=== PATIENT | male | born 1985 | race Two or more races ===

== ENCOUNTER 2021-12-30 07:43 | Outpatient (REF) | payer OTHER, SELFPAY ==
--- NOTE | ~2021-12-30 | US_ITS ---
EXAMINATION: US ABDOMEN COMPLETE CLINICAL INFORMATION: Epigastric pain, abnormal weight loss. COMPARISON: None TECHNIQUE: Real-time imaging of the abdominal viscera. FINDINGS: PANCREAS: Normal. ABDOMINAL AORTA: The proximal, mid, and distal segments are normal in caliber. INFERIOR VENA CAVA: Visualized portions are normal. LIVER: Normal. The liver is normal in size. The liver contour is normal. Parenchymal echogenicity is normal. No focal hepatic lesion. There is no intrahepatic biliary duct dilatation seen. GALLBLADDER: Normal. The gallbladder is physiologically distended without evidence of stones, sludge, polyps, wall thickening or pericholecystic fluid. COMMON BILE DUCT: Normal in caliber measuring 0.2 cm in diameter. RIGHT KIDNEY: Normal. No hydronephrosis. No renal calculi or focal parenchymal lesions. The kidney measures 10.8 cm in maximum dimension. LEFT KIDNEY: Normal. No hydronephrosis. No renal calculi or focal parenchymal lesions. The kidney measures 10.2 cm in maximum dimension. SPLEEN: Normal. The spleen measures 9.5 cm in maximum dimension. FREE FLUID: None. US/US abdomen complete IMPRESSION: No significant abnormality identified on abdominal ultrasound study.
== END 2021-12-30 07:44 | disposition home or self-care (01) ==
LOC: HO.US 07:43
PROVIDERS: PCP Internal Medicine Geriatric Medicine; Visit Provider Internal Medicine Geriatric Medicine
DX: R10.13 Epigastric pain (principal); R63.4 Abnormal weight loss
CPT/HCPCS: 76700

== ENCOUNTER → 2022-01-20 09:46 | Outpatient (BNVA) | payer OTHER, SELFPAY | PROVIDERS: PCP Internal Medicine Geriatric Medicine; Visit Provider Urology | DX: N41.9 Inflammatory disease of prostate, unspecified (principal); N39.0 Urinary tract infection, site not specified | CPT/HCPCS: 99202 ==

== ENCOUNTER 2022-01-22 15:27 | Outpatient (REF) | payer OTHER, SELFPAY | END 2022-01-22 15:28 | disposition home or self-care (01) | LOC: HO.LNP 15:27 | PROVIDERS: Visit Provider Nurse Practitioner Family | DX: R10.10 Upper abdominal pain, unspecified (principal); K21.9 Gastro-esophageal reflux disease without esophagitis; R11.0 Nausea | CPT/HCPCS: 83013; 99202 ==

== ENCOUNTER 2022-02-03 08:45 | Day surgery (SDC) | payer OTHER, SELFPAY ==
[2022-01-28 08:59] VITALS: BMI 23.8
--- NOTE | 2022-01-30 09:28 | HO.ANESPROP2 ---
Documented by User: Jessica Meadows NP 01/30/22 09:29 HPI - Anesthesia Eval Consult details Narrative: 36yo M for Upper Endoscopy [facility] Active Problems Active Problems: All Active Problems (Updated 01/28/22 @ 08:57 by Jenny Diana, PABLO) Prostatitis (Acute) Past Medical History Medical History GERD (gastroesophageal reflux disease) Surgical History Surgical History H/O circumcision Social History Social History Alcohol intake: never Patient Tobacco Use Status: Never used Tobacco Use of substances other than those prescribed or required for medical reasons: No Advance Directives: No Advance Directives Information Provided: Yes Recently lost weight without trying: No Meds Allergies Allergy/AdvReac Type Severity Reaction Status Date / Time No Known Allergies Allergy Verified 01/22/22 10:56 Exam Exam Date and Time: January 30, 2022 0928 Height,Weight and Vital Signs: Height 5 ft 4 in Weight 63.049 kg Assessment and Plan Assessment Anesthesia Assessment: Chart Reviewed Documented by User: Adrián Shelton MD 02/03/22 10:21 [facility] Past Medical History Medical History GERD (gastroesophageal reflux disease) Family History Family history of problems with anesthesia: No Surgical History Surgical History H/O circumcision History of Problems with Anesthesia: No Social History Social History Alcohol intake: never Patient Tobacco Use Status: Never used Tobacco Use of substances other than those prescribed or required for medical reasons: No Advance Directives: No Advance Directives Information Provided: Yes Recently lost weight without trying: No Meds Allergies Allergy/AdvReac Type Severity Reaction Status Date / Time No Known Allergies Allergy Verified 01/22/22 10:56 Exam Airway Mallampati Class: I TM Dist: >3cm Neck ROM: Full Loose/Missing/Broken Teeth: No Heart: rrr Lungs: clear Assessment and Plan Final Anesthetic Review Family History of Problems with Anesthesia: No History of Problems with Anesthesia: No NPO: Yes ASA Class: I Final Preanesthetic Review: No Changes in Pt Med Stat, Meds/Allgs Chart Reviewed, Consent Obtained/Reviewed and Anes Risks/Benef Reviewed Patient Risk: Low Procedure Risk: Low Anesthetic Plan Anesthetic Plan: MAC: Disposition: Standard PACU
[2022-02-03 09:56] VITALS: BP 112/78; PULSE 68; RESP 16; TEMP 36.2; O2SAT 100; BMI 23.5
[2022-02-03] MEDS: Lactated Ringers 1,000 ML 100 ML IVCONT (09:58)
--- NOTE | 2022-02-03 10:24 | MHC.SHP ---
Pre-Procedural Eval Section A Date of Service: 02/03/22 The patient is an INPATIENT: No Changes since office visit: Yes Patient answered all questions; No Cold of Flu in the past 2 weeks, No New Medical Problems and No Changes in Medication The History & Physical has been completed within 30 days and I have reviewed it.: Yes Section B Chief Complaint: Upper abdominal pain,reflux disease Allergies: Allergies Allergy/AdvReac Type Severity Reaction Status Date / Time No Known Allergies Allergy Verified 01/22/22 10:56 Plan I have reviewed the history and physical and performed a pertinent physical examination on my patient. No changes have occurred unless specified.
--- NOTE | 2022-02-03 10:32 | P.BOP_ITS ---
Brief Operative Note Date of Service: 02/03/22 Pre-op diagnosis: GERD, abdominal pain, nausea, wt loss Post-op diagnosis: other (GERD, gastritis, gastric erosions) Procedure: FLEXIBLE TRANSORAL UPPER GASTROINTESTINAL ENDOSCOPY WITH BIOPSIES Consent: Indications for the procedure and potential complications of bleeding, perforation, reaction to medications and missed diagnosis were discussed with the patient and informed consent was obtained. Instrument: Olympus GIF H 190 mid size upper endoscope Monitoring: Vital signs and clinical assessment, continuous EKG monitoring, Pulse oximetry, Carbon Dioxide monitoring and blood pressure monitoring were done throughout the procedure. Procedure: The patient was placed in the left lateral decubitis position and pre-procedure medications were administered and a bite block was placed. The endoscope was inserted into the mouth and advanced under direct vision to the third part of duodenum. A careful inspection was made as the upper endoscope was withdrawn including a retroflexed examination of the proximal stomach; Findings and interventions are described below. Findings: Larynx: Normal Esophagus: GE junction at 40 cms. No esophagitis or Patiño's. Stomach: Moderate diffuse gastric erythema with 1- 1.5 cms linear chronic appearing erosions in the gastric body - biopsied. Antral biopsies were obtained to check for H pylori. Grade 2 flap valve on retroflexed examination of the cardia. Duodenum: Normal bulb and descending duodenum. Biopsies were obtained from 3rd part of duodenum to check for celiac sprue Intervention: Biopsies as noted above Impression and Post Procedure Diagnosis: Endoscopy Findings: STOMACH: Moderate diffuse gastric erythema with 1- 1.5 cms linear chronic appearing erosions in the gastric body - biopsied. (? related to NSAID use) Antral biopsies were obtained to check for H pylori. DUODENUM: Normal - biopsied to check for celiac sprue No source found for wt loss. Plan: Await pathology results Patient has an appointment on 02/17/22 in the GI Clinic with Nichol Robbins FNP-BC. Above findings were reviewed with the patient and GERD handout was given in the discharge area Pt did not arrange for a ride and signed out AMA after the procedure (Please see Event note from Dr Marrero) Of note: Pt weighed 139 lbs when seen by PCP in early September. His wt in the GI clinic on 01/22/22 was stable at 139 lbs Surgeon: Sherwin Duncan MD Anesthesia: MAC (Dr Shelton) Was an Senior Mechanical Project Manager used for this Procedure?: Yes Senior Mechanical Project Manager: Berkley Harrell Estimated blood loss (mL): 0 Pathology: other (A. small bowel bxs, R/O celiac B. gas tric antrum bxs, R/O H. pylori C. gastric erosion bxs) Condition: stable Disposition: PACU
--- NOTE | 2022-02-03 10:55 | P.OP_ITS ---
Operative Note Operative Note Date of Service: 02/03/22 Narrative: Date of Service:?02/03/22 Pre-op diagnosis: GERD, abdominal pain, nausea, wt loss Post-op diagnosis:?other (GERD, gastritis, gastric erosions) Procedure: FLEXIBLE TRANSORAL UPPER GASTROINTESTINAL ENDOSCOPY WITH BIOPSIES Consent:?Indications for the procedure and potential complications of bleeding, perforation, reaction to medications and missed diagnosis were discussed with the patient and informed consent was obtained. Instrument:?Olympus GIF H 190 mid size upper endoscope Monitoring: Vital signs and clinical assessment, continuous EKG monitoring, Pulse oximetry, Carbon Dioxide monitoring and blood pressure monitoring were done throughout the procedure. Procedure:?The patient was placed in the left lateral decubitis position and pre-procedure medications were administered and a bite block was placed. The endoscope was inserted into the mouth and advanced under direct vision to the third part of duodenum. A careful inspection was made as the upper endoscope was withdrawn including a retroflexed examination of the proximal stomach; Findings and interventions are described below. Findings: Larynx:? Normal Esophagus: GE junction at 40 cms. No esophagitis or Patiño's. Stomach: Moderate diffuse gastric erythema with 1- 1.5 cms linear chronic appearing erosions in the gastric body - biopsied. Antral biopsies were obtained to check for H pylori. Grade 2 flap valve on retroflexed examination of the cardia. Duodenum: Normal bulb and descending duodenum.? Biopsies were obtained from 3rd part of duodenum to check for celiac sprue Intervention: Biopsies as noted above Impression and Post Procedure Diagnosis: Endoscopy Findings: STOMACH: Moderate diffuse gastric erythema with 1- 1.5 cms linear chronic appearing erosions in the gastric body - biopsied. (? related to NSAID use) Antral biopsies were obtained to check for H pylori. DUODENUM: Normal - biopsied to check for celiac sprue No source found for wt loss. Plan: Await pathology results Patient has an appointment on 02/17/22 in the GI Clinic with ? Nichol Robbins FNP-BC. Above findings were reviewed with the patient and GERD handout was given in the discharge area Pt did not arrange for a ride and signed out AMA after the procedure (Please see Event note from Dr Marrero) Of note:? Pt weighed 139 lbs when seen by PCP in early September. His wt in the GI clinic on 01/22/22 was stable at 139 lbs Surgeon: Sherwin Duncan MD Anesthesia:?MAC (Dr Shelton) Was an Landscaping Specialist used for this Procedure?:?Yes Landscaping Specialist:?Berkley Harrell Estimated blood loss (mL):?0 Pathology:?other (A. small bowel bxs, R/O celiac? B. gastric antrum bxs, R/O H.? pylori? C. gastric erosion bxs) Condition:?stable Disposition:?PACU
[2022-02-03 10:56] VITALS: BP 108/67; PULSE 69; RESP 24; TEMP 36.1; O2SAT 98
[2022-02-03 11:11] VITALS: BP 106/69; PULSE 70; RESP 18; TEMP -13.9; TEMP 7; O2SAT 100
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
--- NOTE | 2022-02-03 12:31 | PM.EVENT ---
Event Note Date of Service: 02/03/22 Event Note: Called to discharge area for evalaution of an issue. Patient had an EGD under MAC today and was ready to be discharged home. Patient via residential care facility manager jim told us that he had an escort to come and pick him up after the procedure. While waiting to leave the patient told us via residential care facility manager Gio that he had no ride and that he had nobody to pick him up and that he rode his bicycle here. I councelled tae patient about the need for someone to take him home and watch over him. Nursing wool shearing supervisor also offered to call him a taxi to take him home and he would not let us do so. Patient signed out AMA against our advice and left against our better judgement.
== END 2022-02-03 12:44 | disposition home or self-care (01) ==
PROVIDERS: PCP Internal Medicine Geriatric Medicine; Visit Provider Internal Medicine Gastroenterology
PROC: 0DJ08ZZ Inspection of Upper Intestinal Tract, Via Natural or Artificial Opening Endoscopic (ICD-10-PCS; CPT 43235; principal; 2022-02-03 09:10)
DX: K29.50 Unspecified chronic gastritis without bleeding (principal); B96.81 Helicobacter pylori [H. pylori] as the cause of diseases classified elsewhere; K25.9 Gastric ulcer, unspecified as acute or chronic, without hemorrhage or perforation; K21.9 Gastro-esophageal reflux disease without esophagitis; R63.4 Abnormal weight loss; E55.9 Vitamin D deficiency, unspecified
CPT/HCPCS: 43239; 88305; 88342; 99499

== ENCOUNTER → 2022-02-05 14:50 | Outpatient (BNVA) | payer OTHER, SELFPAY | PROVIDERS: PCP Internal Medicine Geriatric Medicine; Visit Provider Nurse Practitioner Family | DX: Z11.0 Encounter for screening for intestinal infectious diseases (principal) | CPT/HCPCS: 99211 ==

== ENCOUNTER 2022-02-05 16:07 | Outpatient (REF) | payer OTHER, SELFPAY ==
[2022-02-06 13:26] LABS: H Pylori Breath Test Positive (Negative)
== END 2022-02-05 16:08 | disposition home or self-care (01) ==
LOC: HO.LNP 16:07
PROVIDERS: Visit Provider Nurse Practitioner Family
DX: K21.9 Gastro-esophageal reflux disease without esophagitis (principal)
CPT/HCPCS: 83013

== ENCOUNTER → 2022-02-13 14:05 | Outpatient (BNVA) | payer OTHER, SELFPAY | PROVIDERS: PCP Internal Medicine Geriatric Medicine; Visit Provider Urology | DX: N41.1 Chronic prostatitis (principal); N39.0 Urinary tract infection, site not specified; N20.0 Calculus of kidney | CPT/HCPCS: 99212 ==

== ENCOUNTER → 2022-02-17 14:34 | Outpatient (BNVA) | payer OTHER, SELFPAY | PROVIDERS: PCP Internal Medicine Geriatric Medicine; Visit Provider Nurse Practitioner Family | DX: A04.8 Other specified bacterial intestinal infections (principal); K21.9 Gastro-esophageal reflux disease without esophagitis; Z98.890 Other specified postprocedural states | CPT/HCPCS: 99212 ==

== ENCOUNTER 2023-09-11 22:01 | Emergency (ER) | payer OTHER, SELFPAY ==
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
[2023-09-11 22:12] VITALS: BP 130/86; BP 139/91; PULSE 101; PULSE 102; RESP 18; TEMP 36.9; O2SAT 100; O2SAT 97; BMI 22.8
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
[2023-09-11] MEDS: oxyCODONE HCl Immed Release 5 MG TABLET 10 MG PO (23:39)
[2023-09-11] MEDS: Diphth,Pertus(ACell),Tet Adult 0.5 ML SYRINGE IM (23:39)
== END 2023-09-12 01:40 | disposition home or self-care (01) ==
PROVIDERS: Emergency Provider Emergency Medicine
DX: S10.81XA Abrasion of other specified part of neck, initial encounter (principal); S10.83XA Contusion of other specified part of neck, initial encounter; Y00.XXXA Assault by blunt object, initial encounter; R04.0 Epistaxis; Y93.9 Activity, unspecified; Y92.9 Unspecified place or not applicable; Y99.9 Unspecified external cause status; Z23 Encounter for immunization
CPT/HCPCS: 70450; 70486; 71101; 72125; 73030; 90471; 90715; 96372; 99284

== ENCOUNTER 2024-10-25 07:57 | Outpatient (REF) | payer OTHER, SELFPAY ==
[2024-10-25 09:31] LABS: Hematocrit 47.2 % (42.0-52.0); Hemoglobin 15.4 g/dl (14.0-18.0); Mean Corpuscular HGB Conc 32.6 g/dl (31.0-36.0); Mean Corpuscular Hemoglobin 28.4 pg (27.0-33.0); Mean Corpuscular Volume 87.1 fL (80.0-98.0); Mean Platelet Volume 10.5 fL (9.4-12.4); Platelet Count 254 X10*3/uL (160-400); Red Blood Count 5.42 X10*6/uL (4.60-5.80); Red Cell Distribution Width 14.2 % (11.0-16.0); White Blood Count 5.4 X10*3/uL (4.8-10.8)
[2024-10-25 10:30] LABS: Alanine Aminotransferase 15 U/L (0-40); Albumin Level 4.5 g/dL (3.5-5.0); Alkaline Phosphatase 79 U/L (39-117); Anion Gap 10 (12-20); Aspartate Amino Transferase 21 U/L (5-37); Bilirubin Total 1.2 mg/dL (0.0-1.0); Blood Urea Nitrogen 17 mg/dL (9-16); Calcium 9.8 mg/dL (8.4-10.2); Carbon Dioxide 29 mmol/L (22-29); Chloride 106 mmol/L (96-108); Estimated Glomerular Filt Rate > 60; Glucose Random 86 mg/dL (60-115); Lipase 26 U/L (8-78); Potassium 4.8 mmol/L (3.3-5.1); Sodium 140 mmol/L (135-145); Total Protein 8.5 g/dL (6.5-8.0)
[2024-10-25 10:35] LABS: TSH reflex Free T4 1.24 uIU/mL (0.32-4.0)
[2024-10-25 10:40] LABS: Vitamin B12 448 pg/mL (200-900)
[2024-10-25 11:36] LABS: Folate 14.7 ng/mL (> or = 4.0)
[2024-10-26 07:33] LABS: H Pylori Breath Test Positive (Negative)
[2024-10-26 13:33] LABS: Transglutaminase IgA <1.0 U/mL
[2024-10-30 21:19] LABS: Vitamin D 25-OH, D2 <4 ng/mL; Vitamin D 25-OH, D3 25 ng/mL; Vitamin D 25-OH, Total 25 ng/mL (30-100)
== END 2024-10-25 07:58 | disposition home or self-care (01) ==
LOC: HO.LAB 07:57
PROVIDERS: Visit Provider Nurse Practitioner Family
DX: R10.9 Unspecified abdominal pain (principal); K21.9 Gastro-esophageal reflux disease without esophagitis; K59.00 Constipation, unspecified; A04.8 Other specified bacterial intestinal infections; R19.7 Diarrhea, unspecified; E55.9 Vitamin D deficiency, unspecified
CPT/HCPCS: 36415; 80053; 82306; 82607; 82746; 83013; 83690; 84443; 85027; 86364; 99212

== ENCOUNTER 2024-10-25 07:57 | Outpatient (AMB) | payer OTHER, SELFPAY ==
--- NOTE | 2024-10-25 08:03 | A.OFFVIS_ITS ---
Vital Signs 10/25/24 08:19 Height 5 ft 8 in Weight 133 lb 2.547 oz BMI 20.2 BP 118/70 Blood Pressure Location Rt brachial Position Sitting Pulse 70 Pulse Source Pulse Oximeter Pulse Oximetry (%) 100 Oxygen Delivery Method Room Air Intake Visit Reasons: Abdominal pain Intake Note: ESTABLISHED PATIENT for re-est. MALOU 2021. No showed 2 mos FUV. Hasn't been back since. Was supposed to retest for H Pylori. Hx of GERD w/ abd pain. Chief Complaint; C/O worsening reflux with epigastric pain. Pt reports presentation is similar to previous H Pylori infection. Pt confirms he did take abx to completion but never retested. Pt would like to be retested today. No additional concerns at this time. 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 Moderate chronic inactive gastritis. Will stop sucralfate for now and treat H pylori. Discussed with patient avoiding dietary triggers and late night snacking. Staying upright for minute 3 hours after meals. Helicobacter pylori (H. pylori) Will treat patient with quadruple therapy for H pylori. Patient will need to be retested after the treatment. Discussed with patient the importance of finishing all of his antibiotics. I will see 2 months, sooner on as needed basis. Patient is agreeable to this plan and verbalizes understanding of instructions. He was given the opportunity to ask questions and all questions answered. ? Thank you for allowing me to participate in his care Plan Medications New bismuth subsalicylate 2 tabs PO QID 112 tabs 0RF 14 days A04.8 metronidazole 1,000 mg (2 x 500 mg) PO BID 56 tabs 0RF A04.8 tetracycline 1,000 mg (2 x 500 mg) PO Q12H 56 caps 0RF A04.8 Discontinued sucralfate Discontinued Reason: Doctor's Order 1 g PO BID 60 tabs 2RF K21.9 TODAY'S VISIT Patient is here today for requested visit. Patient last seen in January of 2022 and treated for H pylori with quadruple therapy. Patient has not followed up since then. Today patient presents with a similar symptoms with epigastric pain and nausea, severe reflux. Patient has lost 12 lb since last visit. Patient reports that he finished all of his treatment last time. States that symptoms are similar as last time. Patient reports nausea. Worsening symptoms at night time. Patient does admit that he eats food like [employer]. Patient works there. [facility] Medical History Gastroesophageal reflux disease GERD (gastroesophageal reflux disease) Surgical History History of esophagogastroduodenoscopy (EGD) H/O circumcision Social History Alcohol intake: never Patient Tobacco Use Status: Never used Tobacco Review of Systems Const Denies weight gain and Denies weight loss ENT Reports no additional complaints, Denies dysphagia and Denies odynophagia Card Reports no additional complaints Resp Reports no additional complaints GI Reports abdominal pain (Epigastric), Denies belching, Denies melena, Denies bloating, Denies change in bowel habits, Denies dysphagia, Denies excessive flatus, Reports dyspepsia (Occasional), Reports heartburn, Denies diarrhea, Denies loose stools, Denies nausea, Denies odynophagia and Denies vomiting Reports no additional complaints Musc Reports no additional complaints Neuro Reports no additional complaints Psych Reports no additional complaints Endo Reports no additional complaints Physical Exam Vital Signs: Last Vital Signs Pulse 70 10/25/24 08:19 BP 118/70 10/25/24 08:19 Pulse Ox 100 10/25/24 08:19 Oxygen Delivery Method Room Air 10/25/24 08:19 BMI result Body Mass Index 20.2 Const General: healthy appearing and no acute distress Nutritional Appearance: underweight Orientation/consciousness: patient oriented x3 Resp Effort & Inspection: normal respiratory effort, able to speak in complete sentences, no tracheal deviation and symmetric chest movement Auscultation: clear to auscultation bilaterally Cardio Rate: regular rate GI Inspection: Yes normal to inspection and No distended Palpation (GI): Soft to palpation, not firm, nontender and No hepatosplenomegaly present Auscultation: normal bowel sounds General: Yes no CVA tenderness Back/Spine/Pelvis Back: no CVA tenderness Skin General skin exam: elasticity normal, turgor normal and dry skin Neuro General: patient oriented x3 Psych Appearance: grossly normal Mental Status: mental status grossly normal Assessment & Plan Assessment & Plan (1) Helicobacter pylori infection: Code(s): A04.8 - Other specified bacterial intestinal infections Category: Medical (2) Gastroesophageal reflux disease: Code(s): K21.9 - Gastro-esophageal reflux disease without esophagitis Category: Medical Qualifiers: Esophagitis presence: without esophagitis Qualified Code(s): K21.9 - Gastro-esophageal reflux disease without esophagitis Plan H pylori breath testing today. If positive empirical therapy. Message sent to surgical schedulers to book upper endoscopy. Standard blood work as we do not have anything on him. Patient has not seen PCP in the while.. Will check lipase, transglutaminase, thyroid study, vitamin-D, B12, folate, CBC and CMP. Will start patient on pantoprazole in the morning and sucralfate at bedtime. Patient reports that this treatment worked for him in the past. Avoid dietary triggers and late night snacking. Staying upright for minimum 3 hours after meals discussed with patient. Patient will follow-up in 10 weeks, sooner on as needed basis. He is agreeable to this plan and verbalizes understanding of instructions. He was given the opportunity to ask questions and all questions answered. Thank you for allowing me to participate in his care Orders: Orders H Pylori Breath Test Today K21.9 - Gastro-esophageal reflux disease without esophagitis TSH reflex Free T4 Today K59.00 - Constipation, unspecified Complete Blood Count no Diff Today K21.9 - Gastro-esophageal reflux disease without esophagitis Comprehensive Met. Panel Today K21.9 - Gastro-esophageal reflux disease without esophagitis Lipase Today R10.9 - Unspecified abdominal pain Vitamin D 25-OH (D2 and D3) Today E55.9 - Vitamin D deficiency, unspecified Transglutaminase IgA Today R10.9 - Unspecified abdominal pain Vitamin B12 and Folate Today R19.7 - Diarrhea, unspecified Coding Level of Care Code Est Pt Level 4 (56424) Diagnoses Helicobacter pylori infection A04.8 Gastroesophageal reflux disease without esophagitis K21.9 Esophagitis presence: without esophagitis Time Spent (min) 40 Comment 25 minutes spent with patient and additional 15 minutes spent reviewing his records
[2024-10-25 08:19] VITALS: BP 118/70; PULSE 70; O2SAT 100; BMI 20.2
== END 2024-10-25 08:47 | disposition home or self-care (01) ==
LOC: HO.HGI 07:58
PROVIDERS: Visit Provider Nurse Practitioner Family
DX: A04.8 Other specified bacterial intestinal infections (principal); K21.9 Gastro-esophageal reflux disease without esophagitis
CPT/HCPCS: 99214

== ENCOUNTER 2024-12-20 11:31 | Day surgery (SDC) | payer OTHER, SELFPAY ==
[2024-12-18 13:51] VITALS: BMI 20.2
--- NOTE | 2024-12-19 09:50 | HO.ANESPROP2 ---
Documented by User: Jessica Meadows NP 12/19/24 09:51 HPI - Anesthesia Eval Consult details Narrative: 39yo M for Upper Endoscopy [facility] Active Problems Active Problems: All Active Problems Helicobacter pylori infection (Acute) Prostatitis (Acute) Gastroesophageal reflux disease (Acute) Past Medical History Medical History Helicobacter pylori (H. pylori) Gastroesophageal reflux disease GERD (gastroesophageal reflux disease) Family History Family history of problems with anesthesia: No Surgical History Surgical History History of esophagogastroduodenoscopy (EGD) H/O circumcision History of Problems with Anesthesia: No Social History Social History Alcohol intake: never Patient Tobacco Use Status: Never used Tobacco Advance Directives: No Advance Directives Information Provided: Yes Meds Allergies Allergy/AdvReac Type Severity Reaction Status Date / Time No Known Allergies Allergy Verified 10/25/24 08:03 Exam Height,Weight and Vital Signs: Height 5 ft 8 in Weight 60.399 kg Assessment and Plan Assessment Anesthesia Assessment: Chart Reviewed Final Anesthetic Review Family History of Problems with Anesthesia: No History of Problems with Anesthesia: No Documented by User: Mohan Wilson MD 12/20/24 11:35 [facility] Past Medical History Medical History Helicobacter pylori (H. pylori) Gastroesophageal reflux disease GERD (gastroesophageal reflux disease) Surgical History Surgical History History of esophagogastroduodenoscopy (EGD) H/O circumcision Social History Social History Alcohol intake: never Patient Tobacco Use Status: Never used Tobacco Advance Directives: No Advance Directives Information Provided: Yes Meds Allergies Allergy/AdvReac Type Severity Reaction Status Date / Time No Known Allergies Allergy Verified 10/25/24 08:03 Exam Airway Mallampati Class: II TM Dist: <=3cm Neck ROM: Full Heart: rrr Lungs: cta Assessment and Plan Assessment Anesthesia Assessment: Anesthesia Plan Discussed Final Anesthetic Review NPO: Yes ASA Class: II Final Preanesthetic Review: No Changes in Pt Med Stat, Meds/Allgs Chart Reviewed, Consent Obtained/Reviewed and Anes Risks/Benef Reviewed Patient Risk: Low Procedure Risk: Low Anesthetic Plan Anesthetic Plan: MAC: Disposition: Standard PACU
--- NOTE | 2024-12-20 11:27 | PC.NURSE ---
called pt at [address]
[2024-12-20 11:38] VITALS: BP 109/68; PULSE 67; RESP 18; TEMP 36.9; BMI 20.4
[2024-12-20] MEDS: Lactated Ringers 1,000 ML 100 ML IVCONT (11:50)
--- NOTE | 2024-12-20 12:02 | P.HPSUR_ITS ---
Pre-Procedural Eval Section A - 24 Hr Update-Section A only Date of Service: 12/20/24 Section B - Complete if H&P > 30 days Chief Complaint: Gastro-esophageal reflux disease without esophagit Relevant Family History (Specify if Yes): No Relevant Social History: None Present Medications: see Short Stay Collaborative assessment Medical History: Significant History (GERD (gastroesophageal reflux disease)) History of Previous Operations: Relevant previous surgery/procedure and date(s) (History of esophagogastroduodenoscopy (EGD) H/O circumcision) Allergies: Allergies Allergy/AdvReac Type Severity Reaction Status Date / Time No Known Allergies Allergy Verified 10/25/24 08:03 Review of Systems Sugical H&P ROS: Negative: Constitution, Cardiovascular, Respiratory, Neurological, Psychiatric, Hem-Onc, Allergic/Immunologic, Gastrointestinal, Genitourinary, Musculoskeletal, Integumentary, Endocrine and Eyes/Ears/Nose/Throat Exam Surgical H&P Exam: Normal: HEENT, Normal: Heart, Normal: Lungs, Normal: Extre mities, Normal: Abdomen, Normal: Skin and Normal: Neurological Plan Diagnosis/Plan: Unchanged I have reviewed the history and physical and performed a pertinent physical examination on my patient. No changes have occurred unless specified. Time Spent With Patient Time: Total time managing care of this patient today ____ minutes.
--- NOTE | 2024-12-20 12:23 | W.PM.OPN ---
Operative Note Operative Note Date of Service: 12/20/24 Narrative: Procedure Description: EGD Indication: epigastric pain, hx of h pylori Anesthesia: MAC FLEXIBLE TRANSORAL UPPER GASTROINTESTINAL ENDOSCOPY UPPER ENDOSCOPY Consent: Indications for the procedure and potential complications of bleeding, perforation, reaction to medications and missed diagnosis were discussed with the patient and informed consent was obtained. Instrument: Olympus GIF H 190 J mid size upper endoscope Monitoring: Vital signs and clinical assessment, continuous EKG monitoring, Pulse oximetry, Carbon Dioxide monitoring and blood pressure monitoring were done throughout the procedure. Procedure: The patient was placed in the left lateral decubitis position and pre-procedure medications were administered and a bite block was placed. The endoscope was inserted into the mouth and advanced under direct vision to the third part of duodenum. A careful inspection was made as the upper endoscope was withdrawn including a retroflexed examination of the proximal stomach; Findings and interventions are described below. Findings: Larynx:normal Esophagus: GE junction at 41 cm, diaphragm hiatus at 41 cm, mild esophagitis at GEJ, bx taken from here and from distal and proximal esophagus Stomach: patchy erythema . Biopsies were obtained for H pylori culture and sensitivity and routine histology. Grade 2 flap valve on retroflexed examination of the cardia. Duodenum: Normal bulb and descending duodenum, bx taken Intervention: Biopsies as noted above, Impression/Findings: gastritis mild esophagitis PLAN: await pathology GERD precautions
[2024-12-20 12:28] VITALS: BP 99/49; PULSE 78; RESP 15; TEMP 36.4; O2SAT 100
[2024-12-20 12:43] VITALS: BP 107/62; PULSE 61; RESP 16; O2SAT 100
[2024-12-20 12:58] VITALS: BP 106/64; PULSE 67; RESP 16; TEMP 36.5; O2SAT 100
== END 2024-12-20 13:29 | disposition home or self-care (01) ==
PROVIDERS: PCP Internal Medicine Geriatric Medicine; Visit Provider Internal Medicine Gastroenterology
PROC: 0DJ08ZZ Inspection of Upper Intestinal Tract, Via Natural or Artificial Opening Endoscopic (ICD-10-PCS; CPT 43235; principal; 2024-12-20 12:00)
DX: K29.60 Other gastritis without bleeding (principal); K20.80 Other esophagitis without bleeding; A04.8 Other specified bacterial intestinal infections; K21.9 Gastro-esophageal reflux disease without esophagitis; R10.13 Epigastric pain; Z79.899 Other long term (current) drug therapy
CPT/HCPCS: 43239; 87081; 87205; 88305; 88313; 88342; J1100; J2003; J2250; J2704

== ENCOUNTER → 2024-12-20 11:31 | Outpatient (BNV) | payer OTHER, SELFPAY | PROVIDERS: PCP Internal Medicine Geriatric Medicine; Visit Provider Internal Medicine Gastroenterology | DX: K20.90 Esophagitis, unspecified without bleeding (principal); K29.70 Gastritis, unspecified, without bleeding; R10.13 Epigastric pain; Z86.19 Personal history of other infectious and parasitic diseases | CPT/HCPCS: 43239 ==

== ENCOUNTER 2025-01-26 12:05 | Outpatient (AMB) | payer OTHER, SELFPAY ==
--- NOTE | 2025-01-26 12:07 | MHC.OFFVIS ---
Vital Signs 01/26/25 12:15 Height 5 ft 8 in Weight 128 lb BMI 19.5 BP 112/64 Blood Pressure Location Rt brachial Position Sitting Pulse 74 Pulse Source Pulse Oximeter Pulse Oximetry (%) 99 Oxygen Delivery Method Room Air Intake Visit Reasons: 10 wks f/u GERD Intake Note: ESTABLISHED PATIENT for s/p FUV. Hx of GERD w/ abd pain. HP tx fuv. Chief Complaint; Pt denies any new sx or concerns at this time. Confirms he completed his abx tx for the H Pylori. Pt states that he is leaving for a trip soon and is hoping we can provide him with some refills for his medications just in case. Finance Accounting Internship Required: Yes Finance Accounting Internship Services: Finance Accounting Internship Present Finance Accounting Internship Name: Leticia [id number] Information Interpreted: clinical only Accompanied by: Self / Same As Patient Allergies No Known Allergies Allergy (Verified 01/26/25 12:07) HPI HPI 10 wks f/u GERD: Details: LAST VISIT: Helicobacter pylori infection Gastroesophageal reflux disease Plan H pylori breath testing today. If positive empirical therapy. Message sent to surgical schedulers to book upper endoscopy. Standard blood work as we do not have anything on him. Patient has not seen PCP in the while.. Will check lipase, transglutaminase, thyroid study, vitamin-D, B12, folate, CBC and CMP. Will start patient on pantoprazole in the morning and sucralfate at bedtime. Patient reports that this treatment worked for him in the past. Avoid dietary triggers and late night snacking. Staying upright for minimum 3 hours after meals discussed with patient. Patient will follow-up in 10 weeks, sooner on as needed basis. He is agreeable to this plan and verbalizes understanding of instructions. He was given the opportunity to ask questions and all questions answered. ? Thank you for allowing me to participate in his care Orders H Pylori Breath Test Today K21.9 TSH reflex Free T4 Today K59.00 Complete Blood Count no Diff Today K21.9 Comprehensive Met. Panel Today K21.9 Lipase Today R10.9 Vitamin D 25-OH (D2 and D3) Today E55.9 Transglutaminase IgA Today R10.9 Vitamin B12 and Folate Today R19.7 UPPER ENDOSCOPY: Findings: Larynx:normal Esophagus: GE junction at 41 cm, diaphragm hiatus at 41 cm, mild esophagitis at GEJ, bx taken from here and from distal and proximal esophagus Stomach: patchy erythema . Biopsies were obtained for H pylori culture and sensitivity and routine histology. Grade 2 flap valve on retroflexed examination of the cardia. Duodenum: Normal bulb and descending duodenum, bx taken Intervention: Biopsies as noted above, Impression/Findings: gastritis mild esophagitis PLAN: await pathology GERD precautions PATHOLOGY RESULTS ADDENDUM REPORT Addendum Addendum #1 Immunostains for H. pylori on B and C are negative. Immunostain for H. pylori on D is positive. Additional levels with AB/PAS on C and D are negative for intestinal metaplasia. Controls stain appropriately. Electronically Signed By: Mariluz La 12/28/24 0815 Diagnosis A. Duodenum, biopsy: Duodenal mucosa with preserved villi and no specific change. B. Stomach, biopsy: Gastric antral mucosa with chronic gastritis with mild activity, and gastric body mucosa with minimal chronic inactive gastritis; negative for intestinal metaplasia and dysplasia. C. Esophagogastric junction, biopsy: Squamocolumnar mucosa with mild chronic inflammation, and gastric-type mucosa with moderate chronic active inflammation; no intestinal metaplasia seen on initial levels; negative for dysplasia. D. Esophagus, distal, biopsy: Squamous mucosa with no specific change, and fragment of gastric cardia-fundic type mucosa with mild chronic active inflammation; no intestinal metaplasia seen on initial levels; negative for dysplasia. E. Esophagus, proximal, biopsy: Squamous mucosa with no specific change; no columnar mucosa present. Comment: (B, C and D): Immunostains for H. pylori pending; addendum to follow. (C and D): Additional levels with AB/PAS stains pending; addendum to follow TODAY'S VISIT Patient is here today for follow-up. Patient reports that he completed 2 weeks of treatment for H pylori patient reports that he has been feeling very well in the past couple weeks. He is taking omeprazole twice a day. Reports that his symptoms have improved. Immuno statin from esophagus showed H pylori. Given that patient has no symptoms we will repeat H pylori breath testing in the office when patient is off of PPI. Patient reports that he is leaving to go to [place] for visit. Patient denies dyspepsia, dysphagia odynophagia. Denies melena, hematochezia, unintentional weight loss or ribbon like stools. [facility] Medical History Helicobacter pylori (H. pylori) Gastroesophageal reflux disease GERD (gastroesophageal reflux disease) Surgical History History of esophagogastroduodenoscopy (EGD) H/O circumcision Social History Alcohol intake: never Patient Tobacco Use Status: Never used Tobacco Review of Systems Const Denies weight gain and Denies weight loss ENT Reports no additional complaints, Denies dysphagia and Denies odynophagia Card Reports no additional complaints Resp Reports no additional complaints GI Denies abdominal pain, Denies belching, Denies melena, Denies bloating, Denies change in bowel habits, Denies dysphagia, Denies excessive flatus, Denies dyspepsia, Denies heartburn, Denies diarrhea, Denies loose stools, Denies nausea, Denies odynophagia and Denies vomiting Reports no additional complaints Musc Reports no additional complaints Neuro Reports no additional complaints Psych Reports no additional complaints Endo Reports no additional complaints Physical Exam Vital Signs: Last Vital Signs Pulse 74 01/26/25 12:15 BP 112/64 01/26/25 12:15 Pulse Ox 99 01/26/25 12:15 Oxygen Delivery Method Room Air 01/26/25 12:15 BMI result Body Mass Index 19.5 Const General: healthy appearing and no acute distress Nutritional Appearance: underweight Orientation/consciousness: patient oriented x3 Resp Effort & Inspection: normal respiratory effort, able to speak in complete sentences, no tracheal deviation and symmetric chest movement Auscultation: clear to auscultation bilaterally Cardio Rate: regular rate GI Inspection: Yes normal to inspection and No distended Palpation (GI): Soft to palpation, not firm, nontender and No hepatosplenomegaly present Auscultation: normal bowel sounds General: Yes no CVA tenderness Back/Spine/Pelvis Back: no CVA tenderness Skin General skin exam: elasticity normal, turgor normal and dry skin Neuro General: patient oriented x3 Psych Appearance: grossly normal Mental Status: mental status grossly normal Results Reviewed Results Reviewed: Laboratory Tests 10/25/24 10/25/24 08:35 09:13 Lipase 26 Vitamin B12 448 25-OH Vitamin D Total 25 L Folate 14.7 Tiss Transglutamin IgA <1.0 H. pylori Breath Test Positive A Assessment & Plan Assessment & Plan (1) Gastroesophageal reflux disease: Code(s): K21.9 - Gastro-esophageal reflux disease without esophagitis Category: Medical Qualifiers: Esophagitis presence: without esophagitis Qualified Code(s): K21.9 - Gastro-esophageal reflux disease without esophagitis (2) Helicobacter pylori infection: Code(s): A04.8 - Other specified bacterial intestinal infections Category: Medical Plan Continue omeprazole. Patient will stop omeprazole for 2 weeks when he returns from [place] we will retest for H pylori. If positive will treat. Patient will follow-up in the office in 3 months, sooner on as needed basis. He is agreeable to this plan and verbalizes understanding of instructions. He was given the opportunity to ask questions and all questions answered. Thank you for allowing me to participate in his care Orders: Orders H Pylori Breath Test Today K21.9 - Gastro-esophageal reflux disease without esophagitis Medications: Refilled omeprazole 20 mg PO BID 180 caps 4RF K21.9 - Gastro-esophageal reflux disease without esophagitis Coding Level of Care Code Est Pt Level 3 (10956) Diagnoses Gastroesophageal reflux disease without esophagitis K21.9 Esophagitis presence: without esophagitis Helicobacter pylori infection A04.8 Time Spent (min) 30 Comment 20 minutes spent with patient and additional 10 minutes spent reviewing his records
[2025-01-26 12:15] VITALS: BP 112/64; PULSE 74; O2SAT 99; BMI 19.5
--- OUTSIDE RECORDS SUMMARY | 2025-01-26 13:03 | XMS_ITS | Clinical Summary ---
Author Organization [employer] Address [address] [facility] [address] [place] [address] Care Team Providers Care Clock Mechanic Name Role Phone Name, Feroz ESPINO Primary Care Provider [phone] Encounters Date Type Department Care Team Description 12/20/2024 Orders Only GENERIC EXTERNAL DATA DEPARTMENT Provider, Generic External Data from Last 3 Months Social History Tobacco Use Types Packs/Day Years Used Date Smoking Tobacco: Never Assessed Sex and Gender Information Value Date Recorded Sex Assigned at Male 06/01/2022 10:39 AM EDT Legal Sex Male 10:39 AM EDT Gender Identity Male 06/01/2022 10:39 AM EDT Sexual Orientation Choose not to disclose 2021 10:39 AM EDT Last Filed Vital Signs Vital Sign Reading Time Taken Comments Blood Pressure 110/74 03/19/2022 12:08 AM EDT Pulse 60 03/19/2022 12:08 AM EDT Temperature - - Respiratory Rate - - Oxygen Saturation - - Inhaled Oxygen Concentration - - Weight 64.5 kg (142 lb 3.2 oz) 03/19/2022 12:08 AM EDT Height 179.1 cm (5' 10.5 ) 03/19/2022 12:08 AM E DT Body Mass Index 20.12 03/19/2022 12:08 AM EDT Plan of Treatment Health Maintenance Due Date Last Done Comments Depression Screening 1985 Disability Screening 1985 Alcohol/Substance Use Screening 1999 Tobacco Screening 1999 Family Planning (PISQ) 2002 DTaP/Tdap/Td Vaccines (1 - Tdap) 2006 Hepatitis B Vaccines (1 of 3 - 19+ 3-dose series) 2006 COVID-19 Vaccine (2023-2 5 season) 2024 Influenza Vaccine (Season Ended) 2025 05/26/20 Lipid Panel 05/20/2026 05/20/2021 Zoster Vaccines (1 of 2) 2037 RSV Patients and Pa tients Aged 60 years or older (1 - 1-dose 75+ series) 2062 HIB Vaccines Aged Out No longer eligi ble based on patient's age to complete this topic HPV Vaccines Aged Out No longer eligi ble based on patient's age to complete this topic Hepatitis A Vaccines Aged Out No long er eligible based on patient's age to complete this topic IPV Vaccines Aged Out No longer eligi ble based on patient's age to complete this topic Meningococcal B Vaccine Aged Out No l onger eligible based on patient's age to complete this topic Meningococcal Vaccine Aged Out No mandy reji eligible based on patient's age to complete this topic Pneumococcal Vaccine: Pediat rics (0 to 5 Years) and At-Risk Patients (6 to 49) Years Aged Out No longer eligi ble based on patient's age to complete this topic RSV under 20 months Aged Out No longe r eligible based on patient's age to complete this topic Rotavirus Vaccines Aged Out No longer eligible based on patient's age to complete this topic Procedures Procedure Name Priority Date/Time Associated Diagnosis Comments H. PYLORI CULTURE Routine 12/20/2024 12: 32 PM EDT HEMATOXYLIN AND EOSIN STAIN Routine 12/20/2024 12:29 PM EDT LIPID PANEL, STANDARD Routine 05/20/2021 8:59 AM EDT from Last 3 Months or Most Recently Relevant to Health Maintenance Results * H. pylori culture (12/20/2024 12:32 PM EDT) 12/20/2024 12:3 2 PM EDT 12/20/2024 12:40 PM EDT Comment:Stomach Narrative [facility] - 01/05/2025 3:15 PM EDT H. pylori Culture null H. pylori Culture null H. pylori Culture null H. pylori Culture null H. pylori Culture null H. pylori Culture null H. pylori Culture null H. pylori Culture null H. pylori Culture null H. pylori Culture null H. pylori Culture null H. pylori Culture null H. pylori Culture null H. pylori Culture null H. pylori Culture null H. pylori Culture null H. pylori Culture null H. pylori Culture null H. pylori Culture null Specimen Source: Stomach us Generic External Data Provider LAB PATHOLOGY ORD ERABLES Final Result [facility] [address] [place] [phone] * Hematoxylin and Eosin Stain (12/20/2024 12:29 PM EDT) 12/20/2024 12:2 9 PM EDT 12/20/2024 12:50 PM EDT Mari [facility] - 12/28/2024 8:15 AM EDT ----- ------- Name: Jeffry Zamarripa Age/Sex: 39/M : 1985 Unit#: [id number] Attend Dr: Eliza Weaver MD Re12/20/24 Status: [facility] [place] Location: [facility] Disch: ----- ------- SPEC : [id number] RECD: 12/20/24-5340 STATUS: PRICILLA WEISS NUM: [id number] ANN: 12/20/24-[address]: Eliza Weaver MD ENTERED: 12/20/24-1303 SP TYPE: Surgical OTHR DR: Feroz Montenegro MD ORDERED: HE Stain/9, Gross Micro L4/5, IHC/3, Special st. 2/2, H. pylori/3, AB/PAS/2 Addendum Addendum 1 Entered: 12/28/24 Immunostains for H. pylori on B and C are negative. Immunostain for H. pylori on D is positive. Additional levels with AB/PAS on C and D are negative for intestinal metaplasia. Controls stain appropriately. Addendum Signed (signature on file) Mariluz La 12/28/24814 ----- ------- Diagnosis A. Duodenum, biopsy: Duodenal mucosa with preserved villi and no specific change. B. Stomach, biopsy: Gastric antral mucosa with chronic gastritis with mild activity, and gastric body mucosa with minimal chronic inactive gastritis; negative for intestinal metaplasia and dysplasia. C. Esophagogastric junction, biopsy: Squamocolumnar mucosa with mild chronic inflammation, and gastric-type mucosa with moderate chronic active inflammation; no intestinal metaplasia seen on initial levels; negative for dysplasia. D. Esophagus, distal, biopsy: Squamous mucosa with no specific change, and fragment of gastric cardia-fundic type mucosa with mild chronic active inflammation; no intestinal metaplasia seen on initial levels; negative for dysplasia. E. Esophagus, proximal, biopsy: Squamous mucosa with no specific change; no columnar mucosa present. Comment: (B, C and D): Immunostains for H. pylori pending; addendum to follow. (C and D): Additional levels with AB/PAS stains pending; addendum to follow. Clinical History Pre-Op Dx: Reflux Post-Op Dx: Gastritis and esophagitis CONTINUED ON NEXT PAGE ----- ------- Name: LizbethJeffry Ramos Age/Sex: 39/M : 1985 [id number] Unit#: [id number] Attend Dr: Eliza Weaver MD Re12/20/24 Status: [facility] Location: [facility] [place] Disch: ----- ------- SPEC : [id number] RECD: 12/20/24-1250 STATUS: PRICILLA [facility] NUM: [id number] ANN: 12/20/24-1229 [facility] DR: Eliza Weaver MD ENTERED: 12/20/24-1303 SP TYPE: Surgical OTHR DR: Feroz Montenegro MD ORDERED: HE Stain/9, Gross Micro L4/5, IHC/3, Special st. 2/2, H. pylori/3, AB/PAS/2 Microscopic Description Microscopic sections reviewed. Material Received A. Duodenum bx's B. Stomach bx's C. EG junction bx's D. Distal esophagus bx's E. Proximal esophagus bx's Gross Description Received in five parts. Part A: Received in formalin labeled duodenum bx are 2 ohara-pink irregular tissue fragments measuring 0.2 and 0.3 cm, submitted in toto in a cassette labeled A. Part B: Received in formalin labeled stomach bx's are 2 ohara-pink irregular tissue fragments measuring 0.15 and 0.25 cm, submitted in toto in a cassette labeled B. Part C: Received in formalin labeled EG junction bx's are 2 ohara irregular tissue fragments each measuring 0.25 cm, submitted in toto in a cassette labeled C. Part D: Received in formalin labeled distal esophagus bx's are 4 ohara-pink irregular tissue fragments ranging from 0.1-0.2 cm, submitted in toto in a cassette labeled D. Part E: Received in formalin labeled proximal esophagus bx's are 2 rabago-pink irregular tissue fragments measuring 0.15 and 0.2 cm, submitted in toto in a cassette labeled E. CEDS Special studies ordered and performed: Immunostain for H. pylori on B1, C1 and D1; AB/PAS stains on C1 and D1. Copies To: Eliza Weaver MD [facility] [address] [place] [phone] CONTINUED ON NEXT PAGE ----- ------- Name: Jeffry Zamarripa Age/Sex: 39/M : 1985 Unit#: [id number] Attend Dr: Eliza Weaver MD Re12/20/24 Status: [facility] [place] Location: [facility] [place] Disch: ----- ------- SPEC : [id number] RECD: 12/20/24-9666 STATUS: PRICILLA WEISS NUM: [id number] ANN: 12/20/24-1229 [facility] DR: Eliza Weaver MD ENTERED: 12/20/24-1303 SP TYPE: Surgical OTHR DR: Feroz Montenegro MD ORDERED: HE Stain/9, Gross Micro L4/5, IHC/3, Special st. 2/2, H. pylori/3, AB/PAS/2 Copies To: (Continued) Name,Feroz ESPINO [address] [place] [address] ----- ------- Signed (signature on file) Mariluz La 12/21/24 1640 ----- ------- END OF REPORT us Generic External Data Provider LAB BLOOD ORDERAB LES Final Result [facility] [address] [place] [phone] * (ABNORMAL) LIPID PANEL, STANDARD (05/20/2021 8:59 AM EDT) Chol/HDLC Ratio 3.8 <5.0 (calc) [facility] Cholesterol, Total 165 <200 mg/dL [facility] HDL Cholesterol 44 > OR = 40 mg/dL [facility] LDL Cholesterol 105(H) mg/dL (calc) [facility] Comment: Reference range: <100 Desirable range <100 mg/dL for primary prevention; <70 mg/dL for patients with CHD or diabetic patients with > or = 2 CHD risk factors. LDL-C is now calculated using the Melvin-Diaz calculation, which is a validated novel method providing better accuracy than the Friedewald equation in the estimation of LDL-C. Melvin SS et al. JASON. 2013;310(19): 4602-2162 (http://education.NewHound.Vedicis/faq/ICZ266) Non-HDL Cholesterol 121 <130 mg/dL (calc) [facility] Comment: For patients with diabetes plus 1 major ASCVD risk factor, treating to a non-HDL-C goal of <100 mg/dL (LDL-C of <70 mg/dL) is considered a therapeutic option. Triglycerides 72 <150 mg/dL [facility] 05/20/2021 8:59 AM EDT us Feroz Montenegro MD LAB BLOOD ORDERABLES Final Resul t [facility] [address] from Last 3 Months or Most Recently Relevant to Health Maintenance Care Teams Clock Mechanic Relationship Specialty Start Date End Date Name, MD Feroz [address] [place] [address] PCP - General Family Medicine 05/15/21
== END 2025-01-26 12:35 | disposition home or self-care (01) ==
PROVIDERS: PCP Internal Medicine Geriatric Medicine; Visit Provider Nurse Practitioner Family
DX: K21.9 Gastro-esophageal reflux disease without esophagitis (principal); A04.8 Other specified bacterial intestinal infections
CPT/HCPCS: 99213

== ENCOUNTER → 2025-01-26 12:05 | Outpatient (BNVA) | payer OTHER, SELFPAY | PROVIDERS: Visit Provider Nurse Practitioner Family | DX: K21.9 Gastro-esophageal reflux disease without esophagitis (principal); A04.8 Other specified bacterial intestinal infections | CPT/HCPCS: 99212 ==

== ENCOUNTER 2025-03-05 14:01 | Outpatient (AMB) | payer OTHER, SELFPAY ==
--- NOTE | 2025-03-05 14:14 | AM.OFFVISNUR ---
Intake Visit Reasons: H Pylori Allergies No Known Allergies Allergy (Verified 01/26/25 12:07) Nursing Note Patient presents for collection of H Pylori breath test. Patient has been fasting for 1 hour (nothing to eat, drink, no chewing gum or smoking) has not taken any antacid medication for at least 2 weeks and has no allergies to artificial sweeteners.?? Assessment & Plan Assessment & Plan (1) Gastroesophageal reflux disease: Code(s): K21.9 - Gastro-esophageal reflux disease without esophagitis Category: Medical Qualifiers: Esophagitis presence: without esophagitis Qualified Code(s): K21.9 - Gastro-esophageal reflux disease without esophagitis (2) Helicobacter pylori infection: Code(s): A04.8 - Other specified bacterial intestinal infections Category: Medical Plan Patient presents for collection of H Pylori breath test. Patient has been fasting for 1 hour (nothing to eat, drink, no chewing gum or smoking) has not taken any antacid medication for at least 2 weeks and has no allergies to artificial sweeteners.???This test checks for an overgrowth of bacteria in your stomach. We all have bacteria but some may have more than others. It is treatable. if the test comes back negative there is nothing else to do. If the test result is positive we will treat you with 2 antibiotics and a medication to decrease the acid in your stomach (PPI) for 2 weeks. Two weeks after you have completed the treatment we will retest you to make sure the overgrowth has resolved. Patient Instructions: Process for specimen collection and reason for testing was explained to the patient. Specimen collection. Patient instructed to take a deep breath and then exhale into the blue bag, filling it up as much as possible. Patient instructed to drink a mixture of water and the artificial sweetener with a straw. A 15 minute wait period was observed. Patient instructed to take a deep breath and then exhale into the pink bag, filling it up as much as possible.?? Coding Level of Care Code Established Pt Est Pt Level 1 (68125) Patient Type Established Medical Decision Making Straight Forward Diagnoses Gastroesophageal reflux disease without esophagitis K21.9 Esophagitis presence: without esophagitis Helicobacter pylori infection A04.8
== END 2025-03-05 14:15 | disposition home or self-care (01) ==
LOC: HO.HGI 14:02
PROVIDERS: PCP Internal Medicine Geriatric Medicine; Visit Provider Nurse Practitioner Family
DX: K21.9 Gastro-esophageal reflux disease without esophagitis (principal); A04.8 Other specified bacterial intestinal infections

== ENCOUNTER 2025-03-05 14:01 | Outpatient (REF) | payer OTHER, SELFPAY ==
--- OUTSIDE RECORDS SUMMARY | 2025-03-06 13:01 | XMS_ITS | Clinical Summary ---
Author Organization [employer] Address [address] [facility] 7[address] [place] [address] Care Team Providers Care Garment Steamer Name Role Phone Name, Feroz ESPINO Primary Care Provider [phone] Encounters Date Type Department Care Team Description [...] Tobacco Screening 1999 Family Planning (PISQ) 2002 HPV Vaccines (1 - Male 3-dos e series) 2002 DTaP/Tdap/Td Vaccines (1 - Tdap) 2006 Hepatitis B Vaccines (1 of 3 - 19+ 3-dose series) 2006 COVID-19 Vaccine (1 - 2023-2 5 season) 2024 Influenza Vaccine (#1) 2025 05/26/2021 Lipid Panel 05/20/2026 05/20/2021 Zoster Vaccines (1 [...] EDT 12/20/2024 12:40 PM EDT Comment:Stomach Narrative [facility] - 01/05/2025 3:15 PM EDT [...] Provider LAB PATHOLOGY ORD ERABLES Final Result [facility] [address] [place] [phone] * Hematoxylin and Eosin Stain (12/20/2024 12:29 PM EDT) 12/20/2024 12:2 9 PM EDT 12/20/2024 12:50 PM EDT Mari [facility] - 12/28/2024 8:15 AM EDT ----- ------- Name: Jeffry Zamarripa Age/Sex: 39/M : 1985 Unit#: [id number] Attend Dr: Eliza Weaver MD Re12/20/24 Status: [facility] [place] Location: [facility] Disch: ----- ------- SPEC : [id number] RECD: 12/20/24-1800 STATUS: PRICILLA WEISS NUM: [id number] ANN: 12/20/24-[address]: Eliza Weaver MD ENTERED: 12/20/24-6813 SP TYPE: Surgical OTHR DR: Feroz Montenegro [...] CONTINUED ON NEXT PAGE ----- ------- Name: Lizbeth Jeffry Mcknight Age/Sex: 39/M : 1985 Unit#: [id number] Attend Dr: Eliza Weaver MD Re12/20/24 Status: [facility] [place] Location: [facility] Disch: ----- ------- SPEC : [id number] RECD: 12/20/24-1250 STATUS: EMILYKrzysztof DE LA ROSAAnthony NUM: [id number] ANN: 12/20/24-[address] [facility] [address]: Eliza Weaver MD ENTERED: 12/20/24-1309 SP TYPE: Surgical OTHR DR: Feroz Montenegro [...] and D1. Copies To: Eliza Weaver MD [facility] [address] [place] [phone] CONTINUED ON NEXT PAGE ----- ------- Name: Jeffry Zamarripa Age/Sex: 39/M : 1985 Unit#: [id number] Attend Dr: Eliza Weaver MD Re12/20/24 Status: [facility] [place] Location: [facility] Disch: ----- ------- SPEC : [id number] RECD: 12/20/24-3602 STATUS: PRICILLA WEISS NUM: [id number] ANN: 12/20/24-[address] [facility] [address]: Eliza Weaver MD ENTERED: 12/20/24-5493 SP TYPE: Surgical OTHR DR: Feroz Montenegro MD ORDERED: HE Stain/9, Gross Micro L4/5, IHC/3, Special st. 2/2, H. pylori/3, AB/PAS/2 Copies To: (Continued) Name,Feroz ESPINO [address] [place] [address] ----- ------- Signed (signature on file) Mariluz La 12/21/24 1640 ----- ------- END OF REPORT us Generic External Data Provider LAB BLOOD ORDERAB LES Final Result [facility] [address] [place] [phone] * (ABNORMAL) LIPID PANEL, STANDARD (05/20/2021 [...] LDL-C. Melvin SS et al. JASON. 2013;310(19): 9254-4380 (http://education.Calendly.com/faq/WHJ247) Non-HDL Cholesterol 121 <130 mg/dL (calc) [facility] Comment: For patients with diabetes plus 1 major ASCVD risk factor, treating to a non-HDL-C goal of <100 mg/dL (LDL-C of <70 mg/dL) is considered a therapeutic option. Triglycerides 72 <150 mg/dL [facility] 05/20/2021 8:59 AM EDT us Feroz Montenegro MD LAB BLOOD ORDERABLES Final Resul t [facility] [address] from Last 3 Months or Most Recently Relevant to Health Maintenance Care Teams Garment Steamer Relationship Specialty Start Date End Date Name, MD Feroz [address] [place] [phone] PCP - General Family Medicine 05/15/21
== END 2025-03-05 14:02 | disposition home or self-care (01) ==
LOC: HO.LNP 14:01
PROVIDERS: PCP Internal Medicine Geriatric Medicine; Visit Provider Nurse Practitioner Family
DX: K21.9 Gastro-esophageal reflux disease without esophagitis (principal)
CPT/HCPCS: 83013; 99211

== ENCOUNTER 2025-05-01 13:33 | Outpatient (AMB) | payer OTHER, SELFPAY ==
--- NOTE | 2025-05-01 13:35 | MHC.OFFVIS ---
Vital Signs 05/01/25 13:48 Height 5 ft 8 in Weight 129 lb BMI 19.6 BP 102/58 L Blood Pressure Location Rt brachial Position Sitting Pulse 64 Pulse Source Pulse Oximeter Pulse Oximetry (%) 98 Oxygen Delivery Method Room Air Intake Visit Reasons: 3 mo f/u Intake Note: ESTABLISHED PATIENT for mgmt of GERD w/ abd pain. Chief Complaint; C.O. sx persistence despite finishing abx therapy. Pt is unsure if he needs to restart the same abx or perhaps trial a new type of abx. 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 Patient will stop omeprazole for 2 weeks when he returns from [place] we will retest for H pylori. If positive will treat. Patient will follow-up in the office in 3 months, sooner on as needed basis. He is agreeable to this plan and verbalizes understanding of instructions. He was given the opportunity to ask questions and all questions answered. ? Thank you for allowing me to participate in his care Orders H Pylori Breath Test Today K21.9 Refilled omeprazole 20 mg PO BID 180 caps 4RF K21.9 TODAY'S VISIT: Patient is here today for follow-up. Patient reports that he continues to feel the same. May be mild improvement couple days after, however he still feels the same as he has been diagnosed with H pylori. Patient has never successfully completed full treatment for H pylori. Last script patient reports that he missed for few days then he restarted taking it again. Patient is asking for the strong as treatment for H pylori in he is willing to take it. Patient denies any nausea or vomiting. Reports dyspepsia without dysphagia or odynophagia. Reports postprandial epigastric pain, burning, bloating. Patient is trying to eat healthy. Patient denies eating food that is spicy, greasy. Does not drink alcohol. Reports that he is moving his bowels without any issues. Patient usually eats chicken, fish, blueberries, drinks blueberry juice or carrot juice. Patient reports that he drinks lots of water. Patient denies diarrhea, constipation. Denies any abdominal pain or discomfort. [facility] Medical History Helicobacter pylori (H. pylori) Gastroesophageal reflux disease GERD (gastroesophageal reflux disease) Surgical History History of esophagogastroduodenoscopy (EGD) H/O circumcision Social History Alcohol intake: never Patient Tobacco Use Status: Never used Tobacco Review of Systems Const Denies weight gain and Denies weight loss ENT Reports no additional complaints, Denies dysphagia and Denies odynophagia Card Reports no additional complaints Resp Reports no additional complaints GI Reports abdominal pain (Epigastric), Denies belching, Denies melena, Denies bloating, Denies change in bowel habits, Denies dysphagia, Denies excessive flatus, Reports dyspepsia, Reports heartburn, Denies diarrhea, Denies loose stools, Denies nausea, Denies odynophagia and Denies vomiting Reports no additional complaints Musc Reports no additional complaints Neuro Reports no additional complaints Psych Reports no additional complaints Endo Reports no additional complaints Physical Exam Const General: healthy appearing and no acute distress Nutritional Appearance: underweight Orientation/consciousness: patient oriented x3 Resp Effort & Inspection: normal respiratory effort, able to speak in complete sentences, no tracheal deviation and symmetric chest movement Auscultation: clear to auscultation bilaterally Cardio Rate: regular rate GI Inspection: Yes normal to inspection and No distended Palpation (GI): Soft to palpation, not firm, nontender and No hepatosplenomegaly present Auscultation: normal bowel sounds General: Yes no CVA tenderness Back/Spine/Pelvis Back: no CVA tenderness Skin General skin exam: elasticity normal, turgor normal and dry skin Neuro General: patient oriented x3 Psych Appearance: grossly normal Mental Status: mental status grossly normal Assessment & Plan Assessment & Plan (1) Gastroesophageal reflux disease: Code(s): K21.9 - Gastro-esophageal reflux disease without esophagitis Category: Medical Qualifiers: Esophagitis presence: without esophagitis Qualified Code(s): K21.9 - Gastro-esophageal reflux disease without esophagitis (2) Helicobacter pylori infection: Code(s): A04.8 - Other specified bacterial intestinal infections Category: Medical (3) Epigastric pain: Code(s): R10.13 - Epigastric pain Plan Long discussion with patient about avoiding dietary triggers and sticking to regimen of taking his antibiotics correctly. Patient can take Zofran hour before taking the antibiotics to help in the morning and any afternoon, no more than twice a day. Patient is to start omeprazole after treatment. He will return in 10 weeks and we will retest for H pylori to check for eradication of the bacteria. Patient is agreeable to current plan of care and verbalizes understanding of instructions. He was given the opportunity to ask questions and all questions answered. Thank you for allowing me to participate his care Medications: New bismuth subcit [id number] 140-125-125 mg (Pylera) 3 caps PO QID 168 caps 0RF 14 days B96.81 - Helicobacter pylori [H. pylori] as the cause of diseases classified elsewhere, K29.70 - Gastritis, unspecified, without bleeding Refilled ondansetron 4 mg PO Q8H PRN 20 tabs 0RF nausea and vomiting R11.0 - Nausea omeprazole 40 mg PO DAILY 90 caps 3RF K21.9 - Gastro-esophageal reflux disease without esophagitis Discontinued rifabutin Discontinued Reason: Patient Completed Course 150 mg PO 2XW 14 caps 0RF amoxicillin Discontinued Reason: Patient Completed Course 1,000 mg (2 x 500 mg) PO Q12H 14 days 56 tabs 0RF Coding Level of Care Code Est Pt Level 4 (34890) Diagnoses Gastroesophageal reflux disease without esophagitis K21.9 Esophagitis presence: without esophagitis Helicobacter pylori infection A04.8 Epigastric pain R10.13 Time Spent (min) 40 Comment 25 minutes spent with patient and additional 15 minutes spent reviewing his records
[2025-05-01 13:48] VITALS: BP 102/58; PULSE 64; O2SAT 98; BMI 19.6
--- OUTSIDE RECORDS SUMMARY | 2025-05-01 14:51 | XMS_ITS | Clinical Summary ---
Author Organization [employer] Address [address] [place] [address] Care Team Providers Care Loan Specialist Name Role Phone Unavailable Primary Care Provider Unavailabl e Social History Tobacco Use Types Packs/Day Years [...] Date Last Done Comments Depression Screening 1987 HIV Screening 1987 SDOH Screening 1987 Disability Screening 1987 Alcohol/Substance Use Screening 1999 Tobacco Screening 1999 Family Planning (PISQ) 2002 HPV Vaccines (1 - Male 3-dos e series) 2002 Hepatitis C Screening 2005 DTaP/Tdap/Td Vaccines (1 - Tdap) 2006 Hepatitis B Vaccines (1 of 3 - 19+ 3-dose series) 2006 COVID-19 Vaccine (2023-2 5 season) 2025 Influenza Vaccine (#1) 2025 05/26/2021 Lipid Panel [...] Procedure Name Priority Date/Time Associated Diagnosis Comments HELICOBACTER PYLORI, UREA BREATH TEST Routine 03/05/2025 2:25 PM EDT LIPID PANEL, STANDARD Routine 05/20/2021 8:59 AM EDT from Last 3 Months or Most Recently Relevant to Health Maintenance Results * (ABNORMAL) Helicobacter pylori, Urea Breath Test (03/05/2025 2:25 PM EDT) H. pylori Breath Test Positive (A) Negative [facility] Comment:Antimicrobials, prot on pump inhibitors and bismuthpreparations are known to suppress H. pylori. Ingestingthese medications within two weeks prior to performing thebreath test may produce negative test results. A positiveresult is still clinically valid. 03/05/2025 2:25 PM EDT 03/06/2025 12:26 PM EDT us Generic External Data Provider LAB BODY FLUIDS A ND STOOLS ORDERABLES Final Result Performing Organization Address [facility]/ZIP Co de Phone Number [facility] [address] [place] [address] [phone] (ABNORMAL) LIPID PANEL, STANDARD (05/20/2021 [...] factors. LDL-C is now calculated using the Tomer calculation, which is a validated novel method providing better accuracy than the Friedewald equation in the estimation of LDL-C. Melvin SS et al. JASON. 2013;310(19): 9859-1648 (http://education.[employer].BookLending.com/faq/OUP536) Non-HDL Cholesterol 121 <130 mg/dL (calc) [facility] Comment: For patients with diabetes plus 1 major ASCVD risk factor, treating to a non-HDL-C goal of <100 mg/dL (LDL-C of <70 mg/dL) is considered a therapeutic option. Triglycerides 72 <150 mg/dL [facility] 05/20/2021 8:59 AM EDT us Feroz Montenegro MD LAB BLOOD ORDERABLES Final Resul t [facility] [address] from Last 3 Months or Most Recently Relevant to Health Maintenance
== END 2025-05-01 14:13 | disposition home or self-care (01) ==
LOC: HO.HGI 13:34
PROVIDERS: PCP Internal Medicine Geriatric Medicine; Visit Provider Nurse Practitioner Family
DX: K21.9 Gastro-esophageal reflux disease without esophagitis (principal); A04.8 Other specified bacterial intestinal infections; R10.13 Epigastric pain
CPT/HCPCS: 99214

== ENCOUNTER → 2025-05-01 13:33 | Outpatient (BNVA) | payer OTHER, SELFPAY | PROVIDERS: PCP Internal Medicine Geriatric Medicine; Visit Provider Nurse Practitioner Family | DX: K21.9 Gastro-esophageal reflux disease without esophagitis (principal); R10.13 Epigastric pain; A04.8 Other specified bacterial intestinal infections; R11.0 Nausea | CPT/HCPCS: 99212 ==